=== PATIENT | female | born 1980 | race Native Hawaiian/Other Pacific Islander ===

== ENCOUNTER 2017-05-09 21:46 | Emergency (ER) | payer MEDICARE, MEDICAID ==
[2017-05-10] MEDS ORDERED: KETOROLAC TROMETHAMINE INJ/PF 30 MG/1 ML SDV IV ONE (01:13)
[2017-05-10] MEDS ORDERED: NORMAL SALINE 1000 ML 1,000 ML IV ONE (01:14)
[2017-05-10] MEDS ORDERED: METOCLOPRAMIDE HCL INJ/PF 10 MG/2 ML SDV IV ONE (01:14)
[2017-05-10] MEDS ORDERED: DIPHENHYDRAMINE HCL 50 MG/ML VIAL IV ONE (01:14)
--- NOTE | 2017-05-10 01:15 | ER Document Report ---
ED Headache - General Chief Complaint: Migraine DALTON Stated Complaint: HEADACHE Time Seen by Provider: 05/10/17 01:02 Notes: Patient is a 37-year-old female comes emergency department for chief complaint of a headache. She states she has pain in the base of her skull in the neck and also in the left side of her head and behind her eye. She states she vomited a couple of times and is light sensitive. She states she gets headaches likely several times a month and these are chronic. She states she took her treximet but it did not seem to be helping. Headache started this morning. She denies that it is worse than her typical headache except that it did not respond to her medication. She denies any injury, fever, neck stiffness. She does have a history of C5 through C7 fusion and states that ever since she got that she gets these headaches. She denies numbness or incontinence. TRAVEL OUTSIDE OF THE [place] IN LAST 30 DAYS: No - Related Data Allergies/Adverse Reactions: gatifloxacin [From Tequin] Allergy (Severe, Verified 07/02/12 16:09) Anaphylaxis Penicillins Allergy (Severe, Verified 07/02/12 16:09) Anaphylaxis erythromycin base [Erythromycin Base] Allergy (Verified 07/02/12 16:09) GI upset Past Medical History - General Information source: Patient - Social History Smoking Status: Never Smoker Frequency of alcohol use: None Drug Abuse: None Lives with: Family Family History: Reviewed & Not Pertinent Pulmonary Medical History: Reports: Hx Asthma, Hx Bronchitis Denies: Hx Tuberculosis Neurological Medical History: Reports: Hx Migraine Renal/ Medical History: Reports: Hx Kidney Stones, Hx Ovarian Cysts. Denies: Hx Peritoneal Dialysis, Hx Pelvic Inflammatory Disease GI Medical History: Reports: Hx Gastritis, Hx Gastroesophageal Reflux Disease Musculoskeltal Medical History: Reports Hx Musculoskeletal Trauma Skin Medical History: Reports Hx Cellulitis, Reports Hx Eczema, Reports Hx Psoriasis Psychiatric Medical History: Reports: Hx Anxiety, Hx Attention Deficit Hyperactivity Disorder - ADD, Hx Depression, Hx Post Traumatic Stress Disorder Traumatic Medical History: Reports: Hx Fractures Infectious Medical History: Denies: Hx MRSA Past Surgical History: Reports: Hx Abdominal Surgery - numerous abd surgeries, Hx Appendectomy, Hx Colostomy - and reversal, Hx Gynecologic Surgery - bartholin cyst, Hx Oral Surgery - Jaw and dental extraction, Hx Orthopedic Surgery - cervical fusion 5-7. Denies: Hx Pacemaker - Immunizations Immunizations up to date: Yes Hx Diphtheria, Pertussis, Tetanus Vaccination: Yes Review of Systems - Review of Systems Constitutional: No symptoms reported EENT: No symptoms reported Cardiovascular: No symptoms reported Respiratory: No symptoms reported Gastrointestinal: See HPI Genitourinary: No symptoms reported Female Genitourinary: No symptoms reported Musculoskeletal: See HPI Skin: No symptoms reported Hematologic/Lymphatic: No symptoms reported Neurological/Psychological: See HPI Physical Exam - Vital signs Vitals: Temp Pulse Resp BP Pulse Ox 98.9 F 78 18 161/79 H 99 05/09/17 23:02 05/09/17 23:02 05/09/17 23:02 05/09/17 23:02 05/09/17 23:02 Interpretation: Normal - General General appearance: Appears well, Alert In distress: None - HEENT Head: Normocephalic, Atraumatic Eyes: Normal Conjunctiva: Normal Extraocular movements intact: Yes Eyelashes: Normal Pupils: PERRL Sinus: Normal Nasal: Normal Mouth/Lips: Normal Mucous membranes: Normal Pharynx: Normal Neck: Normal - Respiratory Respiratory status: No respiratory distress Chest status: Nontender Breath sounds: Normal Chest palpation: Normal - Cardiovascular Rhythm: Regular Heart sounds: Normal auscultation Murmur: No - Abdominal Inspection: Normal Distension: No distension Bowel sounds: Normal Tenderness: Nontender Organomegaly: No organomegaly - Back Back: Normal. No: Tender - Mild paracervical tenderness bilaterally, no midline tenderness, moves all extremities and full range of motion, normal strength, normal distal neurovascular exam - Extremities General upper extremity: Normal inspection, Nontender, Normal color, Normal ROM , Normal temperature General lower extremity: Normal inspection, Nontender, Normal color, Normal ROM , Normal temperature, Normal weight bearing. No: Finn's sign - Neurological Neuro grossly intact: Yes Cognition: Normal Orientation: AAOx4 [place] Coma Scale Eye Opening: Spontaneous [place] Coma Scale Verbal: Oriented [place] Coma Scale Motor: Obeys Commands [place] Coma Scale Total: 15 Speech: Normal Cranial nerves: Normal Cerebellar coordination: Normal Motor strength normal: LUE, RUE, LLE, RLE Additional motor exam normals: Equal student services director Sensory: Normal - Psychological Associated symptoms: Normal affect, Normal mood - Skin Skin Temperature: Warm Skin Moisture: Dry Skin Color: Normal Course - Re-evaluation Re-evalutation: Patient does not appear to be in severe distress, she cooperates with a normal neurological exam, her physical examination is unremarkable. After treatment with cocktail for migraine headache, patient sleeping soundly. After awakening she smiling, she states her headache is completely gone. She states she is ready to leave. She reports frequent tightness in her neck and headaches developing after this. She usually takes Excedrin for this. She asks for something additionally. Given Fioricet for now, she has good neurology follow-up already with Dr. Quezada. Discussed return precautions. Patient states understanding and agreement. - Vital Signs Vital signs: Temp Pulse Resp BP Pulse Ox 97.6 F 76 16 108/74 98 05/10/17 03:03 05/10/17 03:03 05/10/17 03:03 05/10/17 03:03 05/10/17 03:03 Discharge - Discharge Clinical Impression: Headache Qualifiers: Headache type: unspecified Headache chronicity pattern: acute headache Intractability: not intractable Qualified Code(s): R51 - Headache Condition: Stable Disposition: HOME, SELF-CARE Additional Instructions: Your symptoms and response to treatment are consistent with a migraine, however there are some symptoms also suggestive of a tension headache. Please follow- up with your neurologist for additional care. Take Fioricet instead of the Excedrin if needed, also continue current medications. Return to emergency department for any concerning or worsening symptoms including returned or severe headache, fever, or any other concerning symptoms. Prescriptions: Butalb/Acetaminophen/Caffeine [Fioricet (50-325-40 mg) Tablet] 1 tab PO Q4HP PRN #30 tab PRN Reason: Forms: Treatment of Relative/Child
[2017-05-10 03:06] VITALS: BP 108/74
== END 2017-05-10 03:05 | disposition home or self-care (01) ==
LOC: ER 21:46
DX: R51 Headache (principal); R11.10 Vomiting, unspecified; M54.2 Cervicalgia; Z88.0 Allergy status to penicillin; Z88.3 Allergy status to other anti-infective agents; Z98.1 Arthrodesis status; Z87.442 Personal history of urinary calculi
CPT/HCPCS: 99283; 96361; 96374; 96375; J1200; J1885; J2765; J7030

== ENCOUNTER 2017-06-27 09:59 | Emergency (ER) | payer MEDICARE, MEDICAID ==
--- NOTE | 2017-06-27 10:35 | ER Document Report ---
HPI - HPI Patient complains to provider of: Skin rash Onset: Last week Onset/Duration: Persistent Quality of pain: No pain Pain Level: Denies Context: Patient complains of pruritic skin rash primarily to trunk and extremities for the past week. Patient has multiple household contacts with scabies. Patient seeking treatment for the same. Associated Symptoms: Other - Skin rash Exacerbated by: Denies Relieved by: Denies Similar symptoms previously: No Recently seen / treated by doctor: No - ROS ROS below otherwise negative: Yes Systems Reviewed and Negative: Yes All other systems reviewed and negative - CONSTITUTIONAL Constitutional: DENIES: Fever, Chills - RESPIRATORY Respiratory: DENIES: Coughing - GASTROINTESTINAL Gastrointestinal: DENIES: Nausea, Patient vomiting - REPRODUCTIVE Reproductive: DENIES: : - DERM Skin Color: Normal Skin Problems: Rash Past Medical History - General Information source: Patient - Social History Smoking Status: Current Every Day Smoker Occupation: none Lives with: Friend Family History: Reviewed & Not Pertinent Pulmonary Medical History: Reports: Hx Asthma, Hx Bronchitis Denies: Hx Tuberculosis Neurological Medical History: Reports: Hx Migraine Renal/ Medical History: Reports: Hx Kidney Stones, Hx Ovarian Cysts. Denies: Hx Peritoneal Dialysis, Hx Pelvic Inflammatory Disease GI Medical History: Reports: Hx Gastritis, Hx Gastroesophageal Reflux Disease Musculoskeltal Medical History: Reports Hx Musculoskeletal Trauma Skin Medical History: Reports Hx Cellulitis, Reports Hx Eczema, Reports Hx Psoriasis Psychiatric Medical History: Reports: Hx Anxiety, Hx Attention Deficit Hyperactivity Disorder - ADD, Hx Depression, Hx Post Traumatic Stress Disorder Traumatic Medical History: Reports: Hx Fractures Infectious Medical History: Denies: Hx MRSA Past Surgical History: Reports: Hx Abdominal Surgery - numerous abd surgeries, Hx Appendectomy, Hx Colostomy - and reversal, Hx Gynecologic Surgery - bartholin cyst, Hx Oral Surgery - Jaw and dental extraction, Hx Orthopedic Surgery - cervical fusion 5-7. Denies: Hx Pacemaker - Immunizations Immunizations up to date: Yes Hx Diphtheria, Pertussis, Tetanus Vaccination: Yes Vertical Provider Document - CONSTITUTIONAL Agree With Documented VS: Yes Exam Limitations: No Limitations General Appearance: WD/WN, No Apparent Distress - INFECTION CONTROL TRAVEL OUTSIDE OF THE [place] IN LAST 30 DAYS: No - HEENT HEENT: Atraumatic, Normocephalic - NECK Neck: Normal Inspection - RESPIRATORY Respiratory: Breath Sounds Normal, No Respiratory Distress - CARDIOVASCULAR Cardiovascular: Regular Rate, Regular Rhythm - MUSCULOSKELETAL/EXTREMETIES Musculoskeletal/Extremeties: MAEW - NEURO Level of Consciousness: Awake, Alert, Appropriate Motor/Sensory: No Motor Deficit - DERM Integumentary: Warm, Dry, Rash - Scattered erythematous papular lesions located to trunk and right upper extremity with excoriations. Patient with scaling erythematous plaque to right elbow consistent with history of psoriasis Discharge - Discharge Clinical Impression: Scabies Condition: Stable Disposition: HOME, SELF-CARE Instructions: Anti-Mite Skin Creams, Scabies ([facility]) Additional Instructions: Return immediately for any new or worsening symptoms Followup with your primary care provider, call tomorrow to make a followup appointment Prescriptions: Permethrin [Elimite] 60 gm TP ONCE #60 gm Referrals: ERLINDA BATISTA PA-C [[facility] STAFF] - Follow up as needed
== END 2017-06-27 10:45 | disposition home or self-care (01) ==
LOC: ER 09:59
DX: B86 Scabies (principal); F17.200 Nicotine dependence, unspecified, uncomplicated; J45.909 Unspecified asthma, uncomplicated
CPT/HCPCS: 99282